=== PATIENT | female | born 1985 | race African-American/Black ===

== ENCOUNTER 2023-12-06 12:00 | Outpatient (RCR) | payer OTHER, SELFPAY | END 2023-12-06 23:59 | disposition home or self-care (01) | LOC: RPT 12:00 | PROVIDERS: ATTENDING PHYSICIAN Neurological Surgery; FAMILY PHYSICIAN Internal Medicine | DX: F07.81 Postconcussional syndrome (principal); M54.2 Cervicalgia; M79.601 Pain in right arm; Z73.6 Limitation of activities due to disability; R26.2 Difficulty in walking, not elsewhere classified; R26.89 Other abnormalities of gait and mobility; M79.674 Pain in right toe(s); R41.841 Cognitive communication deficit; R41.840 Attention and concentration deficit; R47.89 Other speech disturbances; W50.0XXD Accidental hit or strike by another person, subsequent encounter; Y93.89 Activity, other specified; Y92.89 Other specified places as the place of occurrence of the external cause; Y99.0 Civilian activity done for income or pay | CPT/HCPCS: 96125; 97110; 97163 ==

== ENCOUNTER 2024-01-03 10:22 | Outpatient (RCR) | payer OTHER, SELFPAY | END 2024-01-16 11:50 | disposition home or self-care (01) | LOC: RPT 10:22 | PROVIDERS: ATTENDING PHYSICIAN Neurological Surgery; FAMILY PHYSICIAN Internal Medicine | DX: F07.81 Postconcussional syndrome (principal); R41.841 Cognitive communication deficit; R41.840 Attention and concentration deficit; R47.89 Other speech disturbances; M54.2 Cervicalgia; M79.601 Pain in right arm; Z73.6 Limitation of activities due to disability | CPT/HCPCS: 97010; 97110; 97112; 97129; 97130; 97140 ==